=== PATIENT | male | born 1940 | race Caucasian/White ===

== ENCOUNTER → 2018-05-04 | Outpatient (CLI) | payer MEDICARE, OTHER ==
--- NOTE | 2018-05-04 08:14 | US ---
EXAMINATION TYPE: US duplex aorta DATE OF EXAM: 05/04/2018 COMPARISON: US aorta 05/02/2013 CLINICAL HISTORY: Z13.6 Encounter for screening for cardiovascular d. Family history of AAA. Difficul t exam due to overlying bowel gas EXAM MEASUREMENTS: Abdominal Aorta: Proximal: 2.5 x 2.1cm Mid: 2.0 x 2.0 cm Distal: 1.8 x 1.8 cm Bifurcation: Rt: 0.9 x 0.9 cm Lt: 0.9 x 0.9 cm Diffuse atherosclerotic change, no evidence of greater than 3 cm AAA. IMPRESSION: No aneurysmal change is evident in the abdominal aorta visualized through bifurcation.
== END | disposition home or self-care (01) ==
LOC: RADUSWWP 07:46
PROVIDERS: ATTEND Family Medicine
DX: Z13.6 Encounter for screening for cardiovascular disorders (principal)
CPT/HCPCS: 93979